=== PATIENT | female | born 2000 | race Caucasian/White ===

== ENCOUNTER 2023-05-10 16:34 | Emergency (ER) | payer OTHER, SELFPAY ==
[2023-05-10] MEDS ORDERED: Ibuprofen 200 MG TAB ONE (18:25)
== END 2023-05-10 19:17 | disposition home or self-care (01) ==
LOC: CSHERS 16:34
DX: S93.601A Unspecified sprain of right foot, initial encounter (principal); X50.1XXA Overexertion from prolonged static or awkward postures, initial encounter

== ENCOUNTER 2024-05-12 18:47 | Emergency (ER) | payer BC, OTHER ==
[2024-05-12] MEDS ORDERED: Ondansetron ODT 4 MG TAB ONE (19:18)
[2024-05-12] MEDS ORDERED: Ibuprofen 200 MG TAB ONE (19:18)
[2024-05-12] MEDS ORDERED: Acetaminophen 500 MG TAB ONE (19:18)
== END 2024-05-12 20:19 | disposition home or self-care (01) ==
LOC: CSHERS 18:47
DX: S01.511A Laceration without foreign body of lip, initial encounter (principal); S06.0XAA Concussion with loss of consciousness status unknown, initial encounter; W03.XXXA Other fall on same level due to collision with another person, initial encounter; Y93.89 Activity, other specified; Z55.0 Illiteracy and low-level literacy
CPT/HCPCS: 93005; Q0162